=== PATIENT | female | born 2000 | race Two or more races ===

== ENCOUNTER 2020-12-18 21:27 | Inpatient (IN) | payer MEDICAID ==
[~2020-12-18] VITALS: Ht 157.5 cm; Wt 51.4 kg
[2020-12-18] MEDS ORDERED: ZOLPIDEM TARTRATE 10 MG TABLET PO PRN (22:45)
[2020-12-18] MEDS ORDERED: LORazepam 2 MG TABLET PO PRN (22:45)
[2020-12-18] MEDS ORDERED: QUEtiapine FUMARATE 100 MG TABLET PO PRN (22:45)
[2020-12-19 01:57] LABS: BASOPHILS % (AUTO) 0.5 % (0.0-2.0); EOSINOPHILS % (AUTO) 1.3 % (1.0-6.0); HEMATOCRIT 40.2 % (36-46); HEMOGLOBIN 13.5 g/dL (12.0-16.0); LYMPHOCYTES # (AUTO) 3.1 K/uL (1.0-4.8); LYMPHOCYTES % (AUTO) 29.9 % (22.0-44.0); MEAN CORPUSCULAR HEMOGLOBIN 30.4 pg (26.0-34.0); MEAN CORPUSCULAR HGB CONC 33.6 G/dL (31.0-37.0); MEAN CORPUSCULAR VOLUME 90 fL (80-100); MONOCYTES # (AUTO) 0.8 K/uL (0.1-1.0); MONOCYTES % (AUTO) 7.2 % (2.0-9.0); NEUTROPHILS # (AUTO) 6.4 K/uL (1.8-7.7); NEUTROPHILS % (AUTO) 61.1 % (40.0-70.0); PLATELET COUNT (AUTO) 401 K/uL (150-450); RED BLOOD CELL COUNT(AUTO) 4.44 MIL/uL (4.00-5.20); RED CELL DISTRIBUTION WIDTH 12.5 % (11.5-14.5)
[2020-12-19 02:03] LABS: COVID AG,FIA SOURCE NASOPHARYNGEAL
[2020-12-19 02:04] LABS: ANION GAP 10 mmol/L (8-16); CALCIUM, TOTAL 9.1 mg/dL (8.8-10.5); CARBON DIOXIDE 27 mmol/L (22-29); CHLORIDE 102 mmol/L (98-107); CREATININE 0.56 mg/dL (0.60-1.30); GLOMERULAR FILTR. RATE CALC > 60 mL/min (>60); GLUCOSE,RANDOM 102 mg/dL (70-110); POTASSIUM 3.6 mmol/L (3.5-5.1); SODIUM SERUM 139 mmol/L (136-145); UREA NITROGEN, BLOOD 11 mg/dL (7-18)
[2020-12-19 02:11] LABS: APPEARANCE,URINE CLEAR (CLEAR); BILIRUBIN,URINE NEGATIVE (NEGATIVE); GLUCOSE, URINE (UA) NEGATIVE (NEGATIVE); KETONES,URINE TRACE mg/dL (NEGATIVE); LEUKOCYTE ESTERASE ,URINE NEGATIVE (NEGATIVE); NITRATE,URINE NEGATIVE (NEGATIVE); OCCULT BLOOD,URINE NEGATIVE (NEGATIVE); PH,URINE 5.5 (5.0-8.0); PROTEIN,URINE NEGATIVE (NEGATIVE); UROBILINOGEN,URINE 0.2 mg/dL (<=1.0)
[2020-12-19 02:14] LABS: AMPHET/METH SCREEN,URINE NEGATIVE (NEGATIVE); BARBITURATE SCREEN, URINE NEGATIVE (NEGATIVE); BENZODIAZEPINES SCREEN,URINE NEGATIVE (NEGATIVE); CANNABINOID SCREEN,URINE POSITIVE (NEGATIVE); COCAINE SCREEN,URINE NEGATIVE (NEGATIVE); METHADONE SCREEN, URINE NEGATIVE (NEGATIVE); OPIATE SCREEN,URINE NEGATIVE (NEGATIVE)
[2020-12-19 02:15] LABS: ALANINE AMINOTRANSFERASE 25 U/L (12-78); ALBUMIN 4.5 g/dL (3.4-5.0); ALKALINE PHOSPHATASE 88 U/L (46-116); ASPARTATE AMINOTRANSFERASE 15 U/L (15-37); BILIRUBIN,TOTAL 0.4 mg/dL (0.1-1.0); CHOL/HDL RATIO 2.8 (3.9-5.7); CHOLESTEROL 156 mg/dL (131-200); HCG,QUANTITATIVE < 1 mIU/mL (0-6); HDL CHOLESTEROL 56 mg/dL (40-60); LDL CHOL (CALC.) 81 mg/dL (0-130); TRIGLYCERIDES 93 mg/dL (15-150)
[2020-12-19 02:20] LABS: PHENCYCLIDINE SCREEN,URINE NEGATIVE (NEGATIVE)
[2020-12-19 06:31] VITALS: BP 123/55
[2020-12-19 08:06] VITALS: BP 100/60
[2020-12-19] MEDS: CITALOPRAM HYDROBROMIDE 20 MG TABLET PO SCH (12:25)
[2020-12-19 16:26] VITALS: BP 121/75
[2020-12-20 01:19] VITALS: BP 120/68
[2020-12-20 08:29] VITALS: BP 131/75
[2020-12-20] MEDS: CITALOPRAM HYDROBROMIDE 20 MG TABLET PO SCH (08:41)
[2020-12-20 16:07] VITALS: BP 128/77
[2020-12-21 05:34] VITALS: BP 101/64
[2020-12-21 08:20] VITALS: BP 121/72
[2020-12-21] MEDS: CITALOPRAM HYDROBROMIDE 20 MG TABLET PO SCH (08:53)
[2020-12-21] MEDS ORDERED: CITA-144 PO (10:27)
== END 2020-12-21 13:45 | disposition home or self-care (01) | DRG 754 ==
LOC: EMS 21:27 → B2S 23:00
PROVIDERS: ADMIT Psychiatry & Neurology Psychiatry; ATTEND Psychiatry & Neurology Psychiatry
DX: F32.9 Major depressive disorder, single episode, unspecified (principal); R45.851 Suicidal ideations; Z20.822 Contact with and (suspected) exposure to COVID-19
CPT/HCPCS: 80053; 80061; 81003; 84702; 85025; 87426; 99285; G0480